=== PATIENT | male | born 2000 | race Two or more races ===

== ENCOUNTER 2022-08-24 14:00 | Emergency (ER) | payer MEDICAID ==
[~2022-08-24] VITALS: Ht 172.7 cm; Wt 75.9 kg
[2022-08-24] MEDS ORDERED: cefTRIAXone SODIUM 250 MG VL IM ONE (14:30)
[2022-08-24] MEDS ORDERED: AZITHROMYCIN 250 MG TAB PO ONE (14:30)
[2022-08-24 15:03] LABS: Urine Bacteria FEW /hpf (None Seen); Urine Blood 2+ /uL (Negative); Urine Hyaline Cast FEW /lpf (0 - 2); Urine Specific Gravity 1.001 (1.001-1.035); Urine WBC 21 /hpf (0 - 3)
[2022-08-24] MEDS ORDERED: ACET-1158 PO (15:24)
[2022-08-24] MEDS ORDERED: AMOX-277 PO (15:24)
[2022-08-24] MEDS ORDERED: LIDOCAINE 1% HCL (LOCAL ANESTH.) INJ 20ML MDV ONE (15:41)
[2022-08-24 15:51] VITALS: BP 112/77
== END 2022-08-24 16:12 | disposition home or self-care (01) ==
LOC: ER 14:00
DX: N39.0 Urinary tract infection, site not specified (principal)
CPT/HCPCS: 81001; 96372; 99283; J0696; J2001

== ENCOUNTER 2023-03-24 12:41 | Emergency (ER) | payer MEDICAID ==
[~2023-03-24] VITALS: Ht 172.7 cm; Wt 72.0 kg
[~2023-03-24 12:41] MED LIST: ACET500T58 PO; AMOX875T4 PO
[2023-03-24 14:34] VITALS: BP 138/89; PULSE 76; RESP 16; TEMP 98; O2SAT 96
[2023-03-24] MEDS ORDERED: TETANUS-DIPTH-ACEL PERTUSSIS 0.5ML SYR Tdap IM ONE (14:45)
[2023-03-24] MEDS ORDERED: LIDOCAINE 1% HCL (LOCAL ANESTH.) INJ 20ML MDV IJ ONE (14:45)
[2023-03-24] MEDS ORDERED: BAC09TP TOP (15:38)
== END 2023-03-24 15:38 | disposition home or self-care (01) ==
LOC: ER 12:41
DX: S91.312A Laceration without foreign body, left foot, initial encounter (principal); W22.8XXA Striking against or struck by other objects, initial encounter; Y93.89 Activity, other specified; Y92.89 Other specified places as the place of occurrence of the external cause; Y99.8 Other external cause status
CPT/HCPCS: 12001; 90471; 90715; 99283; J2001